=== PATIENT | female | born 1970 | race Two or more races ===

== ENCOUNTER 2022-03-24 16:13 | Emergency (ER) | payer OTHER ==
[~2022-03-24] VITALS: Ht 170.2 cm; Wt 111.6 kg
[2022-03-24] MEDS ORDERED: AZITHROMYCIN 250 MG TAB PO ONE (16:45)
[2022-03-24] MEDS ORDERED: IPRATROPIUM BROM 0.5 MG/2.5ML INH SOL NEB ONE (17:15)
[2022-03-24] MEDS ORDERED: ALBUTEROL SULF 2.5 MG/0.5ML(0.5%) NEB SOLN NEB ONE (17:15)
[2022-03-24] MEDS ORDERED: ACETAMINOPHEN 325 MG TAB PO ONE (18:15)
[2022-03-24] MEDS ORDERED: AZIT250T9 PO (19:18)
[2022-03-24] MEDS ORDERED: DEX4T PO (19:18)
[2022-03-24] MEDS ORDERED: DexAMETHasone 4 MG TAB PO ONE (19:30)
[2022-03-24 20:29] VITALS: BP 109/69
== END 2022-03-24 20:34 | disposition home or self-care (01) ==
LOC: EDBD 16:13 → ER 16:13
DX: U07.1 COVID-19 (principal); B34.9 Viral infection, unspecified; I10 Essential (primary) hypertension
CPT/HCPCS: 36415; 71046; 87426; 87804; 94640; 99284; J7644

== ENCOUNTER 2023-03-25 17:34 | Emergency (ER) | payer MEDICAID, OTHER ==
[~2023-03-25] VITALS: Ht 172.7 cm; Wt 112.6 kg
[~2023-03-25 17:34] MED LIST: AZIT-43 PO; DEX4T PO
[2023-03-25 18:27] LABS: Albumin 3.7 g/dL (3.4-5.0); Calcium 9.4 mg/dL (8.5-10.1)
[2023-03-25 18:28] LABS: Basophils # (auto) 0 10 ^3/uL (0-0.2); Basophils % (auto) 0.3 % (0.0-2.0); Eosinophils # (auto) 0.1 10 ^3/uL (0-0.8); Hematocrit 37.7 % (36.0-46.0); Hemoglobin 12.5 g/dL (12.2-16.2); Lymphocytes # (auto) 3.5 10 ^3/uL (0.4-5.4); Lymphocytes % (auto) 43.4 % (10.0-50.0); Mean Corpuscular Hemoglobin 28.9 pg (28.0-32.0); Mean Corpuscular Hgb Conc. 33.2 g/dL (32.0-36.0); Mean Corpuscular Volume 87.2 fL (80.0-100.0); Monocytes # (auto) 0.6 10 ^3/uL (0-1.3); Monocytes % (auto) 7.8 % (0.0-12.0); Neutrophils # (auto) 3.8 10 ^3/uL (1.6-8.6); Neutrophils % (auto) 47.5 % (37.0-80.0); Nucleated Red Blood Cells % 0.2 %; Red Blood Cells 4.32 10^6/uL (4.0-5.20); Red Cell Distribution Width 13.7 % (11.8-14.3)
[2023-03-25 18:30] LABS: BUN/Creatinine Ratio 11.7 (10.0-20.0); Bilirubin, Total 0.5 mg/dL (0.2-1.0); Total Protein 7.7 g/dL (6.4-8.2)
[2023-03-25] MEDS ORDERED: ONDANSETRON ODT 4 MG TAB PO ONE (19:00)
[2023-03-25] MEDS ORDERED: MECLIZINE HCL 25 MG TAB PO ONE (19:00)
[2023-03-25 21:30] VITALS: BP 164/88
[2023-03-25 21:49] LABS: Urine Bacteria FEW /hpf (None Seen); Urine Blood Negative /uL (Negative); Urine Specific Gravity 1.004 (1.001-1.035); Urine WBC <1 /hpf (0 - 5)
[2023-03-25] MEDS ORDERED: CLON0.1T PO (21:49)
[2023-03-25] MEDS ORDERED: MECL1TAB42 PO (21:49)
[2023-03-25] MEDS ORDERED: ZOFR4T PO (21:49)
== END 2023-03-25 22:05 | disposition home or self-care (01) ==
LOC: ER 17:34
DX: R42 Dizziness and giddiness (principal); R07.89 Other chest pain; I10 Essential (primary) hypertension; E66.01 Morbid (severe) obesity due to excess calories; R51.9 Headache, unspecified; Z68.37 Body mass index [BMI] 37.0-37.9, adult
CPT/HCPCS: 36415; 70450; 80053; 81001; 84484; 85025; 93005; 99284; J8597; Q0162

== ENCOUNTER 2023-06-30 12:19 | Emergency (ER) | payer MEDICAID ==
[~2023-06-30] VITALS: Ht 165.1 cm; Wt 111.2 kg
[~2023-06-30 12:19] MED LIST changes: +CLON0.1T PO; +MECL1TAB42 PO; +ZOFR4T PO
[2023-06-30 13:03] VITALS: BP 151/88; PULSE 97; RESP 18; TEMP 98.5; O2SAT 97
[2023-06-30] MEDS ORDERED: PRED1PAK8 PO (14:38)
[2023-06-30] MEDS ORDERED: AZIT-43 PO (14:38)
== END 2023-06-30 14:43 | disposition home or self-care (01) ==
LOC: ER 12:19
DX: J06.9 Acute upper respiratory infection, unspecified (principal); R05.9 Cough, unspecified; I10 Essential (primary) hypertension
CPT/HCPCS: 71046

== ENCOUNTER 2024-03-28 17:07 | Emergency (ER) | payer MEDICAID ==
[~2024-03-28] VITALS: Ht 162.6 cm; Wt 115.8 kg
[~2024-03-28 17:07] MED LIST changes: +PRED1PAK8 PO
[2024-03-28 18:25] VITALS: BP 181/89; PULSE 68; RESP 18; TEMP 98.6; O2SAT 96
[2024-03-28] MEDS ORDERED: AUG875T PO (18:56)
[2024-03-28] MEDS: KETOROLAC TROMETH 30 MG/ML 1ML VIAL IM ONE (18:57)
[2024-03-28] MEDS ORDERED: HUR60 MT (19:24)
[2024-03-28] MEDS: BENZOCAINE (DENTAL) 20 % SPRAY 60ML MT ONE (19:25)
== END 2024-03-28 19:29 | disposition home or self-care (01) ==
LOC: ER 17:07
DX: K02.9 Dental caries, unspecified (principal); I10 Essential (primary) hypertension; Z79.899 Other long term (current) drug therapy
CPT/HCPCS: 96372; 99283; J1885

== ENCOUNTER 2025-04-07 17:43 | Emergency (ER) | payer MEDICAID ==
[~2025-04-07] VITALS: Ht 162.6 cm; Wt 105.1 kg
[~2025-04-07 17:43] MED LIST changes: +AUG875T PO; +HUR60 MT
--- NOTE | 2025-04-07 18:08 | ECG ---
[facility] Test Date: 2025-04-07 Test Time: 18:07:31 Pat Name: ANJELICA MOODY Department: er Room: Gender: F Care Transitions Nurse: miguelito : 1970 Requested By: EMERGENCY EMERGENCY Order Number: [id number] Reading MD: Measurements Intervals [place] Rate: 71 P: 39 WA: 147 QRS: 26 QRSD: 84 T: 36 QT: 415 QTc: 451 Interpretive Statements Sinus rhythm Baseline wander in lead(s) V2,V5 Please click the below link to view image of tracing.
[2025-04-07 18:40] LABS: Hematocrit 38.9 % (36.0-46.0); Hemoglobin 13.2 g/dL (12.2-16.2); Mean Corpuscular Hemoglobin 29.8 pg (28.0-32.0); Mean Corpuscular Volume 87.8 fL (80.0-100.0); Nucleated Red Blood Cells % 0.0 %
[2025-04-07] MEDS: ASPirin-EC 325mg tab PO ONE (18:44)
[2025-04-07] MEDS: NITROGLYCERIN 0.4 MG SL TAB SL ONE (18:45)
--- NOTE | 2025-04-07 18:49 | ED.PDOC ---
HPI Comments HPI: 54 y/o F, with PMHx of HTN presents to the ED for CC of hypertension. Patient reports, to have been experiencing elevated blood pressure readings x5days with associated symptoms of dizziness, headache, nausea, and shortness of breath. Patient reports, that she has no prior cardiac history and is unsure why blood pressure has been elevated. In ED triage, patient's blood pressure was slightly elevated at 185/85. Patient denies vomiting, numbness, tingling, vomiting, or palpitations. No other associated symptoms or modifying factors present at this time. Past Medical History: HTN Past Surgical History: TUBAL LIGATION REVIEW OF SYSTEMS: CONSTITUTIONAL: Denies acute: fever, diaphoresis, chills, HEAD: Denies acute: photophobia Eyes: Denies acute: Double vision, vision loss, eye pain, eye discharge. EARS: Denies acute: tinnitus, hearing loss, ear discharge, ear pain, THROAT: Denies acute: sore throat, swelling, difficulty swallowing , pain with swallowing, change in voice. NECK: Denies acute: neck pain, neck swelling, stiff neck. HEART: Denies acute : chest pain, palpitations, LUNGS: Denies acute: wheezing, cough, hemoptysis ABDOMEN: Denies acute: abdominal pain, Vomiting, diarrhea, melena , hematemesis, hematochezia SKIN: Denies acute: rash, redness, lesions, itchiness. EXTREMITIES: Denies acute: calf pain, numbness, tingling, weakness, denies pain in extremity. Denies acute: Low back pain. Neuro: Denies acute: focal neurological deficit, motor or sensory focal neurological deficit, tremors, seizure like activity, confusion, change in mental status, loss of bowel or bladder function, cauda equina like symptoms. : Denies acute: dysuria, hematuria, flank pain, increase in urinary frequency. PSYCH: Denies acute: hallucination, suicidal ideation, homicidal ideation. FEMALE: Denies acute: abnormal vaginal bleeding, foul odor, unusual discharge. PHYSICAL EXAM: General: -----mild---acute distress, awake and alert. Head: normocephalic, atraumatic. Neck: supple, trachea is midline, no swelling. Throat: Normal phonation. Eyes:, no erythema, no purulent discharge, no proptosis, no icterus. Heart: regular rate, regular rhythm, no significant murmur appreciated. Lungs: no apparent respiratory distress, Able to speak in full sentences. No wheezing, no rhonchi, no crackles. No stridors Clear to auscultation bilaterally. Abdomen: non tender to palpation, non distended, soft, no guarding, no rebound, + bowel sounds. Please Neuro: Awake, Alert, oriented to name, self, situation, follows commands GCS=15. Speech is normal. Skin: no petechia, no purpura, no cyanosis, non-pale, not jaundice. Lower extremities: --no - Pitting edema no deformity, no focal swelling, no calf TTP. Makes eye contact. moves all four extremities. Face: no apparent facial droop. Ambulating in the ED independently. ED COURSE: DISCLAIMER: This medical document was created using an electronic medical record system with voice recognition software and computerized dictation system. Although this document has been carefully reviewed, there might still be some phonetic and typographical errors. Occasional wrong-word or "sound-alike" substitutions may have occurred due to the inherent limitations of voice recognition software. These areas are purely typographical due to imperfections of the software programs and do not reflect any compromise in the patient's medical care. Please read the chart carefully and recognize, using context, where these substitutions have occurred. Chief Complaint: High Blood Pressure Time Seen by MD: 18:30 Primary Care Provider: DENIES Reviewed Notes: Nurses Notes, Medications, Allergies Allergies: Coded Allergies: NO KNOWN ALLERGIES (Unverified , 03/24/22) Home Meds Active Scripts Meclizine HCl (Meclizine 25) 25 Mg Tab, 25 MG PO [id number] PRN for 3 Days, #6 TAB Prov:XI GROSSMAN DO 04/07/25 Benzocaine (Dental) (HURRICAINE SPRAY) 1 Spr Sp, 1 SPR MT Q4HP PRN, #1 SPRAY Prov:LIZZY BUTLER 03/28/24 Amoxicillin & Pot Clavulanate (AUGMENTIN TABLET) 875 Mg Tb, 875 MG PO BID for 7 Days, #14 TAB Prov:LIZZY BUTLER 03/28/24 Prednisone (Prednisone) 5 Mg Christiano, 5 MG PO DAILY for 6 Days, #1 PACK Prov:ALEJANDRO FROST Lee [employer] 06/30/23 Azithromycin (Azithromycin) 250 Mg Tab, 250 MG PO DAILY MDD 500 for 5 Days, #6 TAB 0 Refills 2 TABLETS ORALLY ON DAY ONE, THEN 1 TABLET ORALLY DAILY FOR 4 DAYS Prov:ALEJANDRO FROST Lee NEFF 06/30/23 Clonidine Hydrochloride (Clonidine Hcl) 0.1 Mg Tab, 0.1 MG PO TID, #10 TAB To be utilized if systolic blood pressure is above 160 or diastolic pressures above 95. Prov:EUN HOLLIS PAC 03/25/23 Ondansetron Odt 4MG Tab (ZOFRAN PO) 4 Mg Tb, 4 MG PO Q6HP PRN, #20 TAB ODT TAB-DISSOLVE IN MOUTH, THEN SWALLOW Prov:EUN HOLLIS 03/25/23 Meclizine HCl (Meclizine 25) 25 Mg Tab, 25 MG PO Q8HP PRN, #20 TAB Prov:EUN HOLLIS 03/25/23 Dexamethasone (Decadron) 4 Mg Tb, 6 MG PO DAILY, #4 TAB Prov:ROBERTH ABRAHAM MD 03/24/22 Azithromycin (Azithromycin) 250 Mg Tab, 250 MG PO DAILY, #4 MG Prov:ROBERTH ABRAHAM MD 03/24/22 Information Source: Patient Mode of Arrival: Ambulatory Severity: Moderate Timing: Days Duration: Since onset Prehospital treatment: None Onset: At Rest Cardiac Risk Factors: None PE Risk Factors: None History of: None Modifying Factors: Nothing Associated Signs and Symptoms: SOB Was a procedure done? Was a procedure done?: No CP Differential Dx Differential Diagnosis: HTN Essential, HTN Accelerated X-Ray, Labs, Meds, VS Vital Signs Date Time Temp Pulse Resp B/P (MAP) Pulse Ox O2 Delivery O2 Flow Rate FiO2 04/07/25 18:45 148/85 04/07/25 18:07 71 04/07/25 17:57 98.4 79 18 148/85 (106) 97 98.4 Lab Test 04/07/25 20:20 04/07/25 19:21 04/07/25 18:29 Range/Units Urine Color Light-yellow Yellow Urine Clarity Clear Clear Urine pH 6.0 5.0-9.0 Urine Specific [place] 1.013 1.001-1.035 Urine Protein Negative Negative Urine Ketones Negative Negative Urine Blood Negative Negative /uL Urine Nitrite Negative Negative Urine Bilirubin Negative Negative Urine Urobilinogen Normal Negative mg/dL Urine Leukocyte Esterase Negative Negative /uL Urine RBC 2 0 - 4 /hpf Urine Microscopic WBC 1 0-5 /HPF Urine Squamous Epithelial Cells Few <5 /hpf Urine Bacteria None seen None Seen /hpf Urine Glucose Normal Normal mg/dL Troponin I High Sensitivity 14 14 </=34 ng/L White Blood Count 8.6 4.4-10.8 10^3/uL Red Blood Count 4.43 4.0-5.20 10^6/uL Hemoglobin 13.2 12.2-16.2 g/dL Hematocrit 38.9 36.0-46.0 % Mean Corpuscular Volume 87.8 80.0-100.0 fL Mean Corpuscular Hemoglobin 29.8 28.0-32.0 pg Mean Corpuscular Hemoglobin Concent 33.9 32.0-36.0 g/dL Red Cell Distribution Width 13.5 11.8-14.3 % Platelet Count 289 140-450 10^3/uL Mean Platelet Volume 8.8 6.9-10.8 fL Neutrophils (%) (Auto) 56.0 37.0-80.0 % Lymphocytes (%) (Auto) 35.0 10.0-50.0 % Monocytes (%) (Auto) 7.4 0.0-12.0 % Eosinophils (%) (Auto) 1.1 0.0-7.0 % Basophils (%) (Auto) 0.5 0.0-2.0 % Neutrophils # (Auto) 4.8 1.6-8.6 10 ^3/uL Lymphocytes # (Auto) 3.0 0.4-5.4 10 ^3/uL Monocytes # (Auto) 0.6 0-1.3 10 ^3/uL Eosinophils # (Auto) 0.1 0-0.8 10 ^3/uL Basophils # (Auto) 0 0-0.2 10 ^3/uL Nucleated Red Blood Cells 0.0 % Sodium Level 141 136-145 mmol/L Potassium Level 4.0 3.5-5.1 mmol/L Chloride Level 104 98-107 mmol/L Carbon Dioxide Level 29 20-31 mmol/L Anion Gap 8 5-15 Blood Urea Nitrogen 14 9-23 mg/dL Creatinine 1.00 0.550-1.02 mg/dL Glomerular Filtration Rate Calc 67 >90 mL/min BUN/Creatinine Ratio 14.0 10.0-20.0 Serum Glucose 118 H 74-106 mg/dL Calcium Level 9.3 8.7-10.4 mg/dL Total Bilirubin 0.5 0.2-1.0 mg/dL Aspartate Amino Transferase (AST) 35 13-40 U/L Alanine Aminotransferase (ALT) 31 7-40 U/L Alkaline Phosphatase 160 H 46-116 U/L B-Type Natriuretic Peptide 9.98 0-100 pg/mL Total Protein 7.7 5.7-8.2 g/dL Albumin 4.6 3.2-4.8 g/dL Current Medications Medications (Trade) Dose Ordered Sig/Maria De Jesus Route Start Time Stop Time Status Last Admin Aspirin (Ecotrin Enteric Coated Tablet) 325 mg ONCE ONCE PO 04/07/25 18:15 04/07/25 18:16 DC 04/07/25 18:44 Nitroglycerin (Ntrostat Sublingual) 0.4 mg ONCE ONCE SL 04/07/25 18:15 04/07/25 18:16 DC 04/07/25 18:45 Meclizine HCl (Antivert Tablet) 25 mg ONCE ONCE PO 04/07/25 18:45 04/07/25 18:46 DC 04/07/25 18:51 Sodium Chloride 1,000 ml @ 1,000 mls/hr Q1H ONCE IV 04/07/25 18:45 04/07/25 19:44 DC 04/07/25 18:51 [place] [id number] Ph: [phone] DIAGNOSTIC IMAGING Diagnostic Imaging Report : [id number] Signed PATIENT: ANJELICA MOODY ACCT: [id number] UNIT: [id number] : 1970 LOC: ER ROOM / BED: / AGE / SEX: 54 / F ADM STATUS: REG ER SERVICE 11 ORDERING PHYSICIAN: XI GROSSMAN DO PROCEDURE(s): CXRP - CHEST PORTABLE REASON: cp/sob ORDER NUMBER(s): [id number], ACCESSION NUMBER(s): [id number] EXAM: XY CHEST PORTABLE DATE OF SERVICE: 04/07/2025 06:49 PM INDICATION: cp/sob TECHNIQUE: Single frontal view. COMPARISON: None FINDINGS: Mild pulmonary vascular congestion. No focal consolidations. No pleural effusion or pneumothorax. Cardiac silhouette is within normal limits. IMPRESSION: 1. Mild pulmonary vascular congestion. No focal consolidations. ATED BY: HERB JOHNSON MD DICTATED DATE/TIME: 04/07/251904 SIGNED BY: HERB JOHNSON MD SIGNED DATE/TIME: 04/07/251904 CC: [place] [id number] Ph: [phone] DIAGNOSTIC IMAGING Diagnostic Imaging Report : [id number] Signed PATIENT: ANJELICA MOODY ACCT: [id number] UNIT: [id number] : 1970 LOC: ER ROOM / BED: / AGE / SEX: 54 / F ADM STATUS: REG ER SERVICE 19 ORDERING PHYSICIAN: XI GROSSMAN DO PROCEDURE(s): HWOCT - HEAD WITHOUT CONTRAST REASON: russell, dizzy ORDER NUMBER(s): [id number], ACCESSION NUMBER(s): [id number] EXAM: CT HEAD WITHOUT CONTRAST INDICATION: russell, dizzy TECHNIQUE: CT of the head without intravenous contrast. Radiation Dose Information: CT Dose: CTDI volume is 53.63 mGy. Dose-length product is 967.08 mGy*cm The dose indicators for CT are the volume Computed Tomography (CT) Dose Index (CTDIvol) and the Dose Length Product (DLP), and are measured in units of mGy and mGy-cm, respectively. These indicators are not patient dose, but values generated from the CT scanner acquisition factors. The report includes radiation exposure data for exposures received during this examination. COMPARISON: CT HEAD WITHOUT CONTRAST on DOS: 03/25/23 FINDINGS: There is no evidence of acute intracranial hemorrhage, extra-axial collection, mass effect, midline shift, herniation or hydrocephalus. The ventricles, sulci and cisterns are age appropriate. The zurita-white differentiation is intact. Patchy periventricular and subcortical white matter hypoattenuation is nonspecific but may be related to small vessel ischemic disease. The visualized paranasal sinuses and mastoid air cells are clear. The surrounding soft tissues and osseous structures are unremarkable. IMPRESSION: 1. No acute intracranial abnormality. ATED BY: OMAR GÓMEZ Jr., DO DICTATED DATE/TIME: 04/07/251957 SIGNED BY: OMAR GÓMEZ Jr., SIGNED DATE/TIME: 04/07/251957 CC: Time of 1ST Reevaluation: 19:00 Reevaluation 1ST: Unchanged Patient Education/Counseling: Diagnosis, Treatment Family Education/Counseling: No Family Present Departure 1 Departure Time of Disposition: 21:44 Impression: Primary Impression: Vertigo Disposition: 01 HOME / SELF CARE / HOMELESS Condition: Stable Additional Instructions: Additional instructions: You MUST follow-up with your primary care/family doctor in 1 to 2 days. If you are unable to see your primary care/family doctor, please return to our emergency room for re-assessment and re-evaluation in 1 to 2 days. Return to the emergency room here in our facility or to the nearest ER [facility] if your symptoms change or worsen. CONSULTATIONS: you MUST Follow-up for consultation as soon as possible with: --neurology and cardiology in 1-2 days. Please call for appointment. You MUST call the consultants office yourself to make an appointment. You may need to arrange that through your insurance and/or your primary/family doctor. If you are unable to see the clinical consultant in 1 to 2 days, you must return to our emergency room (or any other ER of your choice) for re-assessment and re- evaluation. Adequate fluid hydration. Below is a copy of your radiological report for follow up: [facility] [id number] [place] [id number] Ph: [phone] DIAGNOSTIC IMAGING Diagnostic Imaging Report : [id number] Signed PATIENT: ANJELICA MOODY ACCT: [id number] UNIT: [id number] : 1970 LOC: ER ROOM / BED: / AGE / SEX: 54 / F ADM STATUS: REG ER SERVICE 11 ORDERING PHYSICIAN: XI GROSSMAN DO PROCEDURE(s): CXRP - CHEST PORTABLE REASON: cp/sob ORDER NUMBER(s): [id number], ACCESSION NUMBER(s): [id number] EXAM: XY CHEST PORTABLE DATE OF SERVICE: 04/07/2025 06:49 PM INDICATION: cp/sob TECHNIQUE: Single frontal view. COMPARISON: None FINDINGS: Mild pulmonary vascular congestion. No focal consolidations. No pleural effusion or pneumothorax. Cardiac silhouette is within normal limits. IMPRESSION: 1. Mild pulmonary vascular congestion. No focal consolidations. ATED BY: HERB JOHNSON MD DICTATED DATE/TIME: 04/07/251904 SIGNED BY: HERB JOHNSON MD SIGNED DATE/TIME: 04/07/251904 CC: [place] [id number] Ph: [phone] DIAGNOSTIC IMAGING Diagnostic Imaging Report : [id number] Signed PATIENT: ANJELICA MOODY ACCT: [id number] UNIT: [id number] : 1970 LOC: ER ROOM / BED: / AGE / SEX: 54 / F ADM STATUS: REG ER SERVICE 19 ORDERING PHYSICIAN: XI GROSSMAN DO PROCEDURE(s): HWOCT - HEAD WITHOUT CONTRAST REASON: russell, dizzy ORDER NUMBER(s): [id number], ACCESSION NUMBER(s): [id number] EXAM: CT HEAD WITHOUT CONTRAST INDICATION: russellmayuri TECHNIQUE: CT of the head without intravenous contrast. Radiation Dose Information: CT Dose: CTDI volume is 53.63 mGy. Dose-length product is 967.08 mGy*cm The dose indicators for CT are the volume Computed Tomography (CT) Dose Index (CTDIvol) and the Dose Length Product (DLP), and are measured in units of mGy and mGy-cm, respectively. These indicators are not patient dose, but values generated from the CT scanner acquisition factors. The report includes radiation exposure data for exposures received during this examination. COMPARISON: CT HEAD WITHOUT CONTRAST on DOS: 03/25/23 FINDINGS: There is no evidence of acute intracranial hemorrhage, extra-axial collection, mass effect, midline shift, herniation or hydrocephalus. The ventricles, sulci and cisterns are age appropriate. The zurita-white differentiation is intact. Patchy periventricular and subcortical white matter hypoattenuation is nonspecific but may be related to small vessel ischemic disease. The visualized paranasal sinuses and mastoid air cells are clear. The surrounding soft tissues and osseous structures are unremarkable. IMPRESSION: 1. No acute intracranial abnormality. ATED BY: OMAR GÓMEZ Jr., DO DICTATED DATE/TIME: 04/07/251957 SIGNED BY: OMAR GÓMEZ Jr., SIGNED DATE/TIME: 04/07/251957 CC: e-Prescriptions Meclizine HCl (Meclizine 25) 25 Mg Tab 25 MG PO [id number] PRN for 3 Days, #6 TAB Prov: XI GROSSMAN DO 04/07/25 Discharged With: Self Critical Care Note Critical Care Time?: No Heart Score Heart Score: Heart Score Response (Comments) Value History N/A 0 EKG N/A 0 Age N/A 0 Risk Factors N/A 0 Troponin N/A 0 Total 0 I personally scribed for XI GROSSMAN DO ([email or web address]) on 04/07/25 at 18:49. Electronically submitted by Ana Arcos ([email or web address]). I personally scribed for XI GROSSMAN J DO ([email or web address]) on 04/07/25 at 18:57. Electronically submitted by Ana Arcos ([email or web address]). I personally scribed for XI GROSSMAN J DO ([email or web address]) on 04/07/25 at 20:13. Electronically submitted by Ana Arcos ([email or web address]). I personally scribed for XI GROSSMAN J DO ([email or web address]) on 04/07/25 at 20:14. Electronically submitted by Ana Arcos ([email or web address]). I personally scribed for XI GROSSMAN J DO ([email or web address]) on 04/07/25 at 21:46. Electronically submitted by Ana Arcos ([email or web address]). BRITTANY GROSSMANE J Apr 07, 2025 18:49
[2025-04-07] MEDS: MECLIZINE HCL 25 MG TAB PO ONE (18:51)
[2025-04-07] MEDS: SODIUM CHLORIDE 0.9% 1,000 ML IV ONE (18:51)
[2025-04-07 18:59] LABS: Alanine Aminotransferase 31 U/L (7-40); Albumin 4.6 g/dL (3.2-4.8); Alkaline Phosphatase 160 U/L (46-116); Anion Gap 8 (5-15); BUN/Creatinine Ratio 14.0 (10.0-20.0); Bilirubin, Total 0.5 mg/dL (0.2-1.0); Blood Urea Nitrogen 14 mg/dL (9-23); Calcium 9.3 mg/dL (8.7-10.4); Carbon Dioxide 29 mmol/L (20-31); Chloride 104 mmol/L (98-107); Glucose 118 mg/dL (74-106); Potassium 4.0 mmol/L (3.5-5.1); Sodium 141 mmol/L (136-145); Total Protein 7.7 g/dL (5.7-8.2)
--- NOTE | 2025-04-07 19:07 | DVH ---
EXAM: XY CHEST PORTABLE DATE OF SERVICE: 04/07/2025 06:49 PM INDICATION: cp/sob TECHNIQUE: Single frontal view. COMPARISON: None FINDINGS: Mild pulmonary vascular congestion. No focal consolidations. No pleural effusion or pneumothorax. Cardiac silhouette is within normal limits. IMPRESSION: 1. Mild pulmonary vascular congestion. No focal consolidations.
--- NOTE | 2025-04-07 20:00 | DVH ---
EXAM: CT HEAD WITHOUT CONTRAST INDICATION: russell, dizzy TECHNIQUE: CT of the head without intravenous contrast. Radiation Dose Information: CT Dose: CTDI volume is 53.63 mGy. Dose-length product is 967.08 mGy*cm The dose indicators for CT are the volume Computed Tomography (CT) Dose Index (CTDIvol) and the Dose Length Product (DLP), and are measured in units of mGy and mGy-cm, respectively. These indicators are not patient dose, but values generated from the CT scanner acquisition factors. The report includes radiation exposure data for exposures received during this examination. COMPARISON: CT HEAD WITHOUT CONTRAST on DOS: 03/25/23 FINDINGS: There is no evidence of acute intracranial hemorrhage, extra-axial collection, mass effect, midline s hift, herniation or hydrocephalus. The ventricles, sulci and cisterns are age appropriate. The zurita-white differentiation is intact. Patchy periventricular and subcortical white matter hypoattenuation is nonspecific but may be related to small vessel ischemic disease. The visualized paranasal sinuses and mastoid air cells are clear. The surrounding soft tissues and osseous structures are unremarkable. IMPRESSION: 1. No acute intracranial abnormality.
[2025-04-07 20:35] LABS: Urine Protein, UAD Negative (Negative)
[2025-04-07] MEDS ORDERED: MECL1TAB42 PO (21:45)
[2025-04-07 22:20] VITALS: BP 153/84; PULSE 55; RESP 21; TEMP 97.5; O2SAT 95
== END 2025-04-07 22:22 | disposition home or self-care (01) ==
LOC: ER 17:43
DX: R42 Dizziness and giddiness (principal); I10 Essential (primary) hypertension; Z98.51 Tubal ligation status; Z79.899 Other long term (current) drug therapy; Z79.52 Long term (current) use of systemic steroids
CPT/HCPCS: 36415; 70450; 71045; 80053; 81001; 83880; 84484; 85025; 93005; 96360; 96361; 99285; J7030; J8597